=== PATIENT | male | born 1980 | race American Indian/Alaskan Native ===

== ENCOUNTER 2016-12-12 03:27 | Emergency (ER) | payer OTHER ==
[2016-12-12 04:47] LABS: Urine Drugs of Abuse Note Disclamer
[2016-12-12 04:55] LABS: Basophils % (Auto) 0.5 % (0.0-1.8); Eosinophils % (Auto) 4.2 % (0.0-4.3); Hematocrit 44.4 % (35.5-45.6); Mean Corpuscular HGB Conc 34 % (32-34); Mean Corpuscular Hemoglobin 34 pg (28-32); Mean Corpuscular Volume 100 fl (84-94); Platelet Count 223 K/mm3 (140-440); Red Blood Count 4.46 M/mm3 (3.65-5.03); Red Cell Distribution Width 14.4 % (13.2-15.2); White Blood Count 10.7 K/mm3 (4.5-11.0)
[2016-12-12 04:58] LABS: Bilirubin,Urine NEG (Negative); Blood,Urine NEG (Negative); Ketones,Urine NEG (Negative); Leukocyte Esterase,Urine NEG (Negative); Mucus,Urine FEW /HPF; Nitrite,Urine NEG (Negative); Protein,Urine <15 mg/dL mg/dL (Negative); WBC,Urine < 1.0 /HPF (0.0-6.0)
--- NOTE | 2016-12-12 05:01 | Emergency Department Report ---
ED Psych HPI - General Chief Complaint: Psych Stated Complaint: SUICIDAL/HOMICIDAL Time Seen by Provider: 12/12/16 04:22 Source: patient, police, EMS Mode of arrival: Ambulatory Limitations: No Limitations - History of Present Illness Initial Comments: 36-year-old male presents to the emergency department via law enforcement for mental health evaluation. Per report, the patient has been off his medications. Patient stating that he is suicidal with a plan to run out into traffic. Patient also reports homicidal thoughts, but denies having a specific target or plan. Patient has no other complaints. MD Complaint: suicidal ideation -: unknown Associated Psychiatric Symptoms: suicidal ideation, homicidal ideation History of same: Yes Quality: constant Improves With: none Worsens With: none Context: not taking psychiatric Associated Symptoms: denies other symptoms Treatments Prior to Arrival: placed on mental he If Self Harm: admits thoughts of, has plan ED Review of Systems ROS: Stated complaint: SUICIDAL/HOMICIDAL Other details as noted in HPI Comment: All other systems reviewed and negative Psychiatric: homicidal thoughts, suicidal thoughts ED Past Medical Hx - Past Medical History Previous Medical History?: Yes Hx Psychiatric Treatment: Yes (schizophrenia) - Surgical History Past Surgical History?: No - Family History Family history: no significant - Social History Smoking Status: Never Smoker Substance Use Type: None ED Physical Exam - General Limitations: No Limitations General appearance: alert, in no apparent distress - Head Head exam: Present: atraumatic, normocephalic - Eye Eye exam: Present: normal appearance, PERRL, EOMI - ENT ENT exam: Present: normal exam, normal orophraynx, mucous membranes moist - Neck Neck exam: Present: normal inspection, full ROM. Absent: tenderness - Respiratory Respiratory exam: Present: normal lung sounds bilaterally. Absent: respiratory distress - Cardiovascular Cardiovascular Exam: Present: regular rate, normal rhythm, normal heart sounds - GI/Abdominal GI/Abdominal exam: Present: soft, normal bowel sounds. Absent: distended, tenderness - Extremities Exam Extremities exam: Present: normal inspection, full ROM. Absent: tenderness - Back Exam Back exam: Present: normal inspection, full ROM. Absent: tenderness - Neurological Exam Neurological exam: Present: alert, oriented X3. Absent: motor sensory deficit - Psychiatric Psychiatric exam: Present: flat affect, suicidal ideation - Skin Skin exam: Present: warm, dry, intact ED Course Vital Signs 12/12/16 04:04 Temperature 98.9 F Pulse Rate 86 Respiratory 18 Rate Blood Pressure 130/86 [Left] O2 Sat by Pulse 99 Oximetry - Reevaluation(s) Reevaluation #1: 12/12/16 05:02 Patient has been medically cleared. Form 1013 has been signed and placed on the patient's chart. Patient is awaiting inpatient placement. ED Medical Decision Making - Lab Data Result diagrams: 12/12/16 04:40 Critical care attestation.: If time is entered above; I have spent that time in minutes in the direct care of this critically ill patient, excluding procedure time. ED Disposition Clinical Impression: Suicidal ideation Schizoaffective disorder Qualifiers: Schizoaffective disorder type: depressive Qualified Code(s): F25.1 - Schizoaffective disorder, depressive type Disposition: DC/TX PSY HOSP/PSY UNIT Is pt being admited?: No Condition: Stable Time of Disposition: 05:03
[2016-12-12 05:09] LABS: Blood Urea Nitrogen 16 mg/dL (9-20); Calcium 9.4 mg/dL (8.4-10.2); Carbon Dioxide 28 mmol/L (22-30); Chloride 106.4 mmol/L (98-107); Glucose 97 mg/dL (75-100); Potassium 4.3 mmol/L (3.6-5.0); Sodium 146 mmol/L (137-145)
[2016-12-12 05:10] LABS: Anion Gap 16 mmol/L
--- NOTE | 2016-12-14 03:59 | Event Note ---
Date: 12/14/16 Vital signs reviewed. Patient pending psychiatric placement. Vital Signs 12/12/16 12/12/16 12/12/16 04:04 08:00 20:06 Temperature 98.9 F 98.5 F 98.6 F Pulse Rate 86 56 L 59 L Respiratory 18 18 18 Rate Blood Pressure 130/86 142/82 124/84 [Left] O2 Sat by Pulse 99 98 100 Oximetry 12/12/16 12/13/16 12/13/16 20:08 08:11 19:40 Temperature 97.8 F 98.9 F Pulse Rate 54 L 64 Respiratory 18 14 18 Rate Blood Pressure 132/80 126/84 [Left] O2 Sat by Pulse 100 100 98 Oximetry 12/13/16 21:37 Temperature Pulse Rate Respiratory 18 Rate Blood Pressure [Left] O2 Sat by Pulse Oximetry
--- NOTE | 2016-12-18 10:32 | Event Note ---
Date: 12/18/16 Discussed with mental health psychiatric social worker who reevaluated the patient and states he is no longer homicidal or suicidal. Spoke with the patient myself he states that he was partying on that night. He has no thoughts of homicide or suicide. Patient is appropriate and alert and oriented. We will resend 1013.
[2016-12-18 10:53] VITALS: BP 130/93
== END 2016-12-18 10:54 | disposition home or self-care (01) ==
LOC: EEVIPCON 03:27 → ED 03:27
DX: F25.1 Schizoaffective disorder, depressive type (principal); R45.851 Suicidal ideations
CPT/HCPCS: 36415; 80048; 80307; 81001; 85025; 99285; G0480; 80320